=== PATIENT | male | born 1955 | race Caucasian/White ===

== ENCOUNTER 2016-10-11 13:48 | Observation (INO) | payer OTHER ==
[2016-10-11 13:53] VITALS: BP 164/94; PULSE 102; RESP 20; TEMP 98.1; O2SAT 97
[2016-10-11] MEDS ORDERED: SODIUM CHLOR 0.9% 1000 ML INJ 1,000 ML IV SCH ×2 (14:12)
--- NOTE | 2016-10-11 14:19 | PD ---
HPI Chief Complaint: General Weakness Time Seen by Provider: 14:08 Travel History International Travel<30 days: No Contact w/Intl Traveler<30days: No Traveled to known affect area: No History of Present Illness HPI 61-year-old male presents for evaluation of hyperglycemia. The patient reports that early May she quit smoking but since then he's had a craving for sugary foods. Over the past few weeks he has been having polyuria, polydipsia. He went to an urgent care center who checked his blood sugar, blood sugar was 600 and so he was referred here. Denies blurred vision, abdominal pain, nausea or vomiting, recent illness. He has no insurance or outpatient follow-up. No other complaints. [facility] Past Medical History Medical History: Denies Significant Hx Diminished Hearing: No Tetanus Vaccination: > 5 Years Influenza Vaccination: No Past Surgical History Genitourinary Surgery: Yes (PROSTATE IMPLANT) Social History Alcohol Use: Yes (OCASSIONALLY) Tobacco Use: Yes (QUIT IN MAY) Substance Use: No Allergies-Medications (Allergen,Severity, Reaction): Coded Allergies: Aleve (Verified Allergy, Severe, ITCHING, 10/11/16) Naprosyn (Verified Allergy, Severe, ITCHING, 10/11/16) Reported Meds & Prescriptions Reported Meds & Active Scripts Active No Active Prescriptions or Reported Medications Review of Systems Except as stated in HPI: all other systems reviewed are Neg Physical Exam Narrative GENERAL: Well-developed well-nourished male in no acute distress SKIN: Warm and dry. HEAD: Atraumatic. Normocephalic. EYES: Pupils equal and round. No scleral icterus. No injection or drainage. ENT: No nasal bleeding or discharge. Mucous membranes pink and moist. NECK: Trachea midline. No JVD. CARDIOVASCULAR: Regular rate and rhythm. No murmur appreciated. RESPIRATORY: No accessory muscle use. Clear to auscultation. Breath sounds equal bilaterally. GASTROINTESTINAL: Abdomen soft, non-tender, nondistended. Hepatic and splenic margins not palpable. MUSCULOSKELETAL: No obvious deformities. No edema NEUROLOGICAL: Awake and alert. No obvious cranial nerve deficits. Motor grossly within normal limits. Normal speech. PSYCHIATRIC: Appropriate mood and affect; insight and judgment normal. Data Data Last Documented VS Vital Signs Date Time Temp Pulse Resp B/P Pulse Ox O2 Delivery O2 Flow Rate FiO2 10/11/16 14:11 102 17 97 Room Air 10/11/16 13:53 98.1 164/94 Orders Complete Blood Count With Diff (10/11/16 14:12) Comprehensive Metabolic Panel (10/11/16 14:12) Urinalysis - C+S If Indicated (10/11/16 14:12) Iv Access Insert/Monitor (10/11/16 14:12) Ecg Monitoring (10/11/16 14:12) Sodium Chlor 0.9% 1000 Ml Inj (Ns 1000 M (10/11/16 14:12) Sodium Chlor 0.9% 1000 Ml Inj (Ns 1000 M (10/11/16 14:12) Beta Hydroxybutyrate (Acetone) (10/11/16 14:12) Blood Glucose (10/11/16 14:19) Insulin Human Regular Inj (Novolin R Inj (10/11/16 15:30) Place In Observation (10/11/16 ) Code Status (10/11/16 16:15) Vital Signs (Adult) Q4H (10/11/16 16:15) Activity Oob Ad Melissa (10/11/16 16:15) Bedside Glucose EVANS.AC&HS (10/11/16 16:15) Pcat Instructor / Telemetry .CONTINUOUS (10/11/16 16:15) Intake + Output EVANS.QSHIFT (10/11/16 16:15) Notify Dr: Other (10/11/16 16:15) Diet 1800 Ada Cons Carb (10/11/16 Dinner) Sodium Chlor 0.9% 1000 Ml Inj (Ns 1000 M (10/11/16 16:15) Sodium Chloride 0.9% Flush (Ns Flush) (10/11/16 16:15) Sodium Chloride 0.9% Flush (Ns Flush) (10/11/16 21:00) Acetaminophen (Tylenol) (10/11/16 16:15) Ondansetron Inj (Zofran Inj) (10/11/16 16:15) Basic Metabolic Panel (Bmp) (10/12/16 06:00) Complete Blood Count With Diff (10/12/16 06:00) Hepatic Functional Panel (10/12/16 06:00) Dietary (Dietitian) Consult (10/11/16 16:15) Scd Bilateral/Knee High EVANS.BID (10/11/16 16:15) Naloxone Inj (Narcan Inj) (10/11/16 16:15) Docusate Sodium-Senna (Adrianna-Colace) (10/11/16 21:00) Magnesium Hydroxide Liq (Milk Of Magnesi (10/11/16 16:15) Sennosides (Senokot) (10/11/16 16:15) Bisacodyl Supp (Dulcolax Supp) (10/11/16 16:15) Lactulose Liq (Lactulose Liq) (10/11/16 16:15) Consult Software Configuration Analyst (10/11/16 ) Admit Order (Ed Use Only) (10/11/16 16:17) Insulin Detemir Inj (Levemir Inj) (10/11/16 21:00) Insulin Human Reg Supp Scale (Novolin R (10/11/16 21:00) Insulin Human Regular Inj (Novolin R Inj (10/11/16 17:00) Lipid Profile (10/11/16 16:19) Thyroid Stimulating Hormone (10/11/16 16:19) Free Thyroxine (T4) (10/11/16 16:19) Hemoglobin (Hgb) A1c (10/11/16 16:19) Labs Laboratory Tests Test 10/11/16 14:20 White Blood Count 11.4 TH/MM3 Red Blood Count 5.17 MIL/MM3 Hemoglobin 16.5 GM/DL Hematocrit 48.1 % Mean Corpuscular Volume 93.1 FL Mean Corpuscular Hemoglobin 32.0 PG Mean Corpuscular Hemoglobin 34.3 % Concent Red Cell Distribution Width 13.0 % Platelet Count 227 TH/MM3 Mean Platelet Volume 8.7 FL Neutrophils (%) (Auto) 80.4 % Lymphocytes (%) (Auto) 10.1 % Monocytes (%) (Auto) 8.2 % Eosinophils (%) (Auto) 0.5 % Basophils (%) (Auto) 0.8 % Neutrophils # (Auto) 9.2 TH/MM3 Lymphocytes # (Auto) 1.2 TH/MM3 Monocytes # (Auto) 0.9 TH/MM3 Eosinophils # (Auto) 0.1 TH/MM3 Basophils # (Auto) 0.1 TH/MM3 CBC Comment DIFF FINAL Differential Comment Urine Color LIGHT-YELLOW Urine Turbidity CLEAR Urine pH 5.0 Urine Specific Cleves 1.034 Urine Protein NEG mg/dL Urine Glucose (UA) 1000 mg/dL Urine Ketones 10 mg/dL Urine Occult Blood NEG Urine Nitrite NEG Urine Bilirubin NEG Urine Urobilinogen LESS THAN 2.0 MG/DL Urine Leukocyte Esterase NEG Urine RBC 1 /hpf Urine WBC LESS THAN 1 /hpf Microscopic Urinalysis Comment CULT NOT INDICATED Sodium Level 127 MEQ/L Potassium Level 3.9 MEQ/L Chloride Level 88 MEQ/L Carbon Dioxide Level 26.2 MEQ/L Anion Gap 13 MEQ/L Blood Urea Nitrogen 16 MG/DL Creatinine 1.47 MG/DL Estimat Glomerular Filtration 49 ML/MIN Rate Random Glucose 639 MG/DL Calcium Level 9.1 MG/DL Total Bilirubin 0.9 MG/DL Aspartate Amino Transf 19 U/L (AST/SGOT) Alanine Aminotransferase 39 U/L (ALT/SGPT) Alkaline Phosphatase 117 U/L Total Protein 7.0 GM/DL Albumin 3.9 GM/DL B-Hydroxybutyrate 2.60 MMOL/L MDM Medical Decision Making Medical Screen Exam Complete: Yes Emergency Medical Condition: Yes Medical Record Reviewed: Yes Differential Diagnosis Hyperglycemia, type 2 diabetes, dehydration, electrolyte abnormality, DKA Narrative Course The patient was given IV fluids, basic lab work has been ordered. Laboratory is been reviewed. 1000 glucose in the urine. Blood glucose levels in the 600 range consistent with likely new onset type 2 diabetes. He is not in DKA. He is being given an insulin bolus and his blood sugar will be rechecked. He was also given information on patient assistance program. Plan is to admit the patient for observation for new onset diabetes. Discussed with Dr. Smith who is agreeable. Diagnosis Primary Impression: Diabetes Qualified Code: E11.9 - Type 2 diabetes mellitus without complication, without long-term current use of insulin Additional Impression: Hyperglycemia Admitting Information Admitting Physician Requests: Observation Scripts No Active Prescriptions or Reported Meds Keanu Bustos October 11, 2016 14:19
[2016-10-11 14:46] LABS: AUTOMATED NEUTROPHIL # 9.2 TH/MM3 (1.8-7.7); BASOPHIL # 0.1 TH/MM3 (0-0.2); BASOPHIL % 0.8 % (0.0-2.0); EOSINOPHIL # 0.1 TH/MM3 (0-0.4); EOSINOPHIL % 0.5 % (0.0-4.0); HEMATOCRIT 48.1 % (39.0-51.0); LYMPH % 10.1 % (9.0-44.0); LYMPHOCYTE # 1.2 TH/MM3 (1.0-4.8); MEAN CELL VOLUME 93.1 FL (80.0-100.0); MEAN CORPUSCULAR HGB CONC 34.3 % (32.0-36.0); MONO % 8.2 % (0.0-8.0); NEUT % 80.4 % (16.0-70.0); PLATELET COUNT 227 TH/MM3 (150-450); RED BLOOD COUNT 5.17 MIL/MM3 (4.50-5.90); WHITE BLOOD COUNT 11.4 TH/MM3 (4.0-11.0)
[2016-10-11 14:49] LABS: HEMO FLAGS DIFF FINAL
[2016-10-11 14:51] LABS: BLOOD, URINE NEG (NEG); GLUCOSE,URINE 1000 mg/dL (NEG); KETONE, URINE 10 mg/dL (NEG); NITRITE,URINE NEG (NEG); URINE COLOR LIGHT-YELLOW (YELLW/STRAW)
[2016-10-11 15:04] LABS: COMMENT (UR) CULT NOT INDICATED; CULTURE IF INDICATED CULT NOT INDICATED
[2016-10-11 15:05] LABS: ANION GAP 13 MEQ/L (5-15)
[2016-10-11 15:22] LABS: ALKALINE PHOSPHATASE 117 U/L (45-117); ALT (GPT) 39 U/L (12-78); AST (GOT) 19 U/L (15-37); BICARBONATE 26.2 MEQ/L (21.0-32.0); BLOOD UREA NITROGEN 16 MG/DL (7-18); CHLORIDE 88 MEQ/L (98-107); GLOMERULAR FILTRATION RATE 49 ML/MIN (>89); POTASSIUM 3.9 MEQ/L (3.5-5.1); SODIUM (NA) 127 MEQ/L (136-145); TOTAL BILIRUBIN ADULT 0.9 MG/DL (0.2-1.0)
[2016-10-11] MEDS ORDERED: INSULIN HUMAN REGULAR 1,000 UNITS/10 ML VIAL IV PUSH ONE (15:30)
[2016-10-11] MEDS ORDERED: BISACODYL 10 MG SUPP RECTAL PRN (16:15)
[2016-10-11] MEDS ORDERED: ACETAMINOPHEN 325 MG TAB PO PRN (16:15)
[2016-10-11] MEDS ORDERED: SENNOSIDES 8.6 MG TAB PO PRN (16:15)
[2016-10-11] MEDS ORDERED: MAGNESIUM HYDROXIDE SUSP 30 ML CUP PO PRN (16:15)
[2016-10-11] MEDS ORDERED: ONDANSETRON HCL 4 MG/2 ML VIAL IVP PRN (16:15)
[2016-10-11] MEDS ORDERED: NALOXONE HCL 0.4 MG/ML AMP IV PRN (16:15)
[2016-10-11] MEDS ORDERED: SODIUM CHLORIDE 0.9% FLUSH 10 ML FLUSH IV FLUSH PRN (16:15)
[2016-10-11] MEDS ORDERED: LACTULOSE SYRUP 20 GM/30 ML CUP PO PRN (16:15)
--- NOTE | 2016-10-11 16:25 | HHI.HP ---
[facility] [place] [facility] Primary Care Physician Non-Staff Admission Diagnosis New onset diabetes, hyperglycemia Diagnoses: Chief Complaint: Hyperglycemia Travel History International Travel<30 Days: No Contact w/Intl Traveler <30 Da: No Traveled to Known Affected Are: No History of Present Illness This is a pleasant 61 y/o male who came for evaluation of Hyperglycemia, he quit smoking in May Since then he's had a craving for sugary foods. Over the past few weeks he has been having polyuria, polydipsia. He went to an urgent care center who checked his blood sugar, blood sugar was 600 and so he was referred here. Denies blurred vision, abdominal pain, nausea or vomiting, recent illness. has no Primary care Physician. the patient was seen in Emergency room, complaint of blurred vision, was sent due to Hyperglycemia stable, dry mouth. 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 Past Surgical History Prostate implant Reported Medications Reported Meds & Active Scripts Active No Active Prescriptions or Reported Medications Allergies: Coded Allergies: Aleve (Verified Allergy, Severe, ITCHING, 10/11/16) Naprosyn (Verified Allergy, Severe, ITCHING, 10/11/16) Active Ordered Medications Current Medications Medications (Trade) Dose Ordered Sig/Denita Route Start Time Stop Time Status Last Admin (NS 1000 ml Inj) 1,000 ml @ 150 mls/hr Q6H40M IV 10/11/16 16:15 UNV (NS Flush) 2 ml UNSCH PRN IV FLUSH 10/11/16 16:15 UNV (NS Flush) 2 ml BID IV FLUSH 10/11/16 21:00 UNV (Tylenol) 650 mg Q4H PRN PO 10/11/16 16:15 UNV (Zofran Inj) 4 mg Q6H PRN IVP 10/11/16 16:15 UNV (Narcan Inj) 0.4 mg UNSCH PRN IV 10/11/16 16:15 UNV (Adrianna-Colace) 1 tab BID PO 10/11/16 21:00 UNV (Milk Of Magnesia Liq) 30 ml Q12H PRN PO 10/11/16 16:15 UNV (Senokot) 17.2 mg Q12H PRN PO 10/11/16 16:15 UNV (Dulcolax Supp) 10 mg DAILY PRN RECTAL 10/11/16 16:15 UNV (Lactulose Liq) 30 ml DAILY PRN PO 10/11/16 16:15 UNV Family History Asked and denied. Social History Occasional Alcohol abuse Quit smoking in May this year. Physical Exam Vital Signs Vital Signs Date Time Temp Pulse Resp B/P Pulse Ox O2 Delivery O2 Flow Rate FiO2 10/11/16 14:11 102 17 97 Room Air 10/11/16 13:53 98.1 102 20 164/94 97 Room Air Physical Exam GENERAL: Well-developed well-nourished male in no acute distress SKIN: Warm and dry. HEAD: Atraumatic. Normocephalic. EYES: Pupils equal and round. No scleral icterus. No injection or drainage. ENT: No nasal bleeding or discharge. dry mucous membranes. NECK: Trachea midline. No JVD. CARDIOVASCULAR: Regular rate and rhythm. No murmur appreciated. RESPIRATORY: No accessory muscle use. Clear to auscultation. Breath sounds equal bilaterally. GASTROINTESTINAL: Abdomen soft, non-tender, nondistended. Hepatic and splenic margins not palpable. MUSCULOSKELETAL: No obvious deformities. No edema NEUROLOGICAL: Awake and alert. No obvious cranial nerve deficits. Motor grossly within normal limits. Normal speech. PSYCHIATRIC: Appropriate mood and affect; insight and judgment normal. Laboratory Laboratory Tests Test 10/11/16 14:20 White Blood Count 11.4 Red Blood Count 5.17 Hemoglobin 16.5 Hematocrit 48.1 Mean Corpuscular Volume 93.1 Mean Corpuscular Hemoglobin 32.0 Mean Corpuscular Hemoglobin 34.3 Concent Red Cell Distribution Width 13.0 Platelet Count 227 Mean Platelet Volume 8.7 Neutrophils (%) (Auto) 80.4 Lymphocytes (%) (Auto) 10.1 Monocytes (%) (Auto) 8.2 Eosinophils (%) (Auto) 0.5 Basophils (%) (Auto) 0.8 Neutrophils # (Auto) 9.2 Lymphocytes # (Auto) 1.2 Monocytes # (Auto) 0.9 Eosinophils # (Auto) 0.1 Basophils # (Auto) 0.1 CBC Comment DIFF FINAL Differential Comment Urine Color LIGHT-YELLOW Urine Turbidity CLEAR Urine pH 5.0 Urine Specific [place] 1.034 Urine Protein NEG Urine Glucose (UA) 1000 Urine Ketones 10 Urine Occult Blood NEG Urine Nitrite NEG Urine Bilirubin NEG Urine Urobilinogen LESS THAN 2.0 Urine Leukocyte Esterase NEG Urine RBC 1 Urine WBC LESS THAN 1 Microscopic Urinalysis Comment CULT NOT INDICATED Sodium Level 127 Potassium Level 3.9 Chloride Level 88 Carbon Dioxide Level 26.2 Anion Gap 13 Blood Urea Nitrogen 16 Creatinine 1.47 Estimat Glomerular Filtration 49 Rate Random Glucose 639 Calcium Level 9.1 Total Bilirubin 0.9 Aspartate Amino Transf 19 (AST/SGOT) Alanine Aminotransferase 39 (ALT/SGPT) Alkaline Phosphatase 117 Total Protein 7.0 Albumin 3.9 B-Hydroxybutyrate 2.60 Result Diagram: 10/11/16 1420 10/11/16 1420 Assessment and Plan Assessment and Plan 1. Newly diagnosed DM II, complete laboratory to be complete, placed on observation, preserved Anion Gap continue IV fluids and Insulin, Diabetic Education. DVT prophylaxis with SCDs. Code Status Full code Discussed Condition With Patient and ER Specialist. Kingsley Dean MD October 11, 2016 16:25
[2016-10-11] MEDS: SODIUM CHLOR 0.9% 1000 ML INJ 1,000 ML IV SCH ×2 (16:42→21:42)
[2016-10-11] MEDS: INSULIN HUMAN REGULAR 1,000 UNITS/10 ML VIAL SQ SCH (16:45)
[2016-10-11 16:47] VITALS: BP 150/87; PULSE 81; RESP 17; TEMP 97.8; O2SAT 99
[2016-10-11] MEDS ORDERED: SODIUM CHLOR 0.9% 1000 ML INJ 1,000 ML IV ONE (17:15)
[2016-10-11 17:59] LABS: FREE T4 1.36 NG/DL (0.76-1.46); HDL CHOLESTEROL 36.2 MG/DL (40.0-60.0)
[2016-10-11 18:04] VITALS: BP 153/93; PULSE 73; RESP 16; TEMP 98; O2SAT 96
[2016-10-11 20:06] VITALS: BP 156/88; PULSE 75; RESP 20; TEMP 98.1; O2SAT 97
[2016-10-11] MEDS: SODIUM CHLORIDE 0.9% FLUSH 10 ML FLUSH IV FLUSH SCH (21:00)
[2016-10-11] MEDS: DOCUSATE SODIUM 50 MG/SENNA 8.6 MG TAB PO SCH (21:35)
[2016-10-11] MEDS: INSULIN DETEMIR 100 UNITS/ML VIAL SQ SCH (21:40)
[2016-10-11] MEDS: INSULIN NovoLIN REGULAR SUPPLEMENTAL SCALE SQ SCH (21:41)
[2016-10-12] VITALS (9 sets, daily range): BP systolic 140–172; BP diastolic 69–100; PULSE 64–80; RESP 16–20; TEMP 96.8–98.4; O2SAT 95–98
[2016-10-12] MEDS: SODIUM CHLOR 0.9% 1000 ML INJ 1,000 ML IV SCH ×2 (06:01→17:08)
[2016-10-12] MEDS: INSULIN NovoLIN REGULAR SUPPLEMENTAL SCALE SQ SCH ×4 (07:28→21:13)
[2016-10-12 07:50] LABS: AUTOMATED NEUTROPHIL # 5.5 TH/MM3 (1.8-7.7); BASOPHIL % 0.2 % (0.0-2.0); EOSINOPHIL # 0.1 TH/MM3 (0-0.4); EOSINOPHIL % 1.7 % (0.0-4.0); HEMO FLAGS DIFF FINAL; LYMPH % 16.3 % (9.0-44.0); LYMPHOCYTE # 1.2 TH/MM3 (1.0-4.8); MEAN CELL VOLUME 92.7 FL (80.0-100.0); MEAN CORPUSCULAR HEMOGLOBIN 31.7 PG (27.0-34.0); MEAN CORPUSCULAR HGB CONC 34.2 % (32.0-36.0); MONO % 8.1 % (0.0-8.0); NEUT % 73.7 % (16.0-70.0); PLATELET COUNT 179 TH/MM3 (150-450); RED BLOOD COUNT 4.53 MIL/MM3 (4.50-5.90); RED CELL DISTRIBUTION WIDTH 12.9 % (11.6-17.2); WHITE BLOOD COUNT 7.5 TH/MM3 (4.0-11.0)
[2016-10-12 07:58] LABS: BICARBONATE 26.5 MEQ/L (21.0-32.0); INDIRECT BILIRUBIN 0.4 MG/DL (0.0-0.8); POTASSIUM 3.2 MEQ/L (3.5-5.1); TOTAL BILIRUBIN ADULT 0.6 MG/DL (0.2-1.0)
[2016-10-12] MEDS ORDERED: POTASSIUM CHLORIDE 20 MEQ CONTROLLED RELEASE TAB PO ONE (08:15)
[2016-10-12] MEDS: INSULIN DETEMIR 100 UNITS/ML VIAL SQ SCH (09:00)
[2016-10-12] MEDS: INSULIN HUMAN REGULAR 1,000 UNITS/10 ML VIAL SQ SCH ×2 (09:00→11:59)
[2016-10-12] MEDS: SODIUM CHLORIDE 0.9% FLUSH 10 ML FLUSH IV FLUSH SCH ×2 (09:54→20:30)
[2016-10-12] MEDS: DOCUSATE SODIUM 50 MG/SENNA 8.6 MG TAB PO SCH ×2 (09:54→20:29)
--- NOTE | 2016-10-12 10:45 | HHI.PR ---
Subjective Remarks Follow-up for new onset diabetes. The patient states that for the past month he 's been having polyuria and polydipsia. He's been getting up every hour at night to urinate. He feels like that is getting better here overnight. Otherwise he has no acute complaints. He's been trying to get in to see a self- pay PCP, has an appointment 10/17. Objective Vitals Vital Signs Date Time Temp Pulse Resp B/P Pulse Ox O2 Delivery O2 Flow Rate FiO2 10/12/16 08:51 97.9 72 20 163/69 96 10/12/16 05:03 65 10/12/16 04:03 97.8 64 16 140/74 97 10/12/16 00:08 98.3 72 20 172/100 98 10/11/16 20:06 98.1 75 20 156/88 97 10/11/16 18:04 98.0 73 16 153/93 96 10/11/16 16:47 97.8 81 17 150/87 99 Room Air 10/11/16 14:11 102 17 97 Room Air 10/11/16 13:53 98.1 102 20 164/94 97 Room Air I/O 10/11/16 10/11/16 10/11/16 10/12/16 10/12/16 10/12/16 07:00 15:00 23:00 07:00 15:00 23:00 Output Total 700 ml 800 ml 800 ml Balance -700 ml -800 ml -800 ml Output Urine Total 700 ml 800 ml 800 ml # Voids 1 1 # Bowel Movements 0 0 Result Diagram: 10/12/16 0654 10/12/16 0654 Objective Remarks GENERAL: Well-developed well-nourished. In no acute distress. SKIN: Warm and dry. No lesions noted. HEENT: Normocephalic. Pupils equal and round. Mucous membranes pink and moist. CARDIOVASCULAR: Regular rate and rhythm. No murmur appreciated. RESPIRATORY: No accessory muscle use. Clear to auscultation. Breath sounds equal bilaterally. GASTROINTESTINAL: Abdomen soft, non-tender, nondistended. Bowel sounds x4. MUSCULOSKELETAL: No obvious deformities. No clubbing or cyanosis. No edema. NEUROLOGICAL: Awake and alert. No focal neurological deficits. Moves upper and lower extremities spontaneously. Normal speech. PSYCHIATRIC: Appropriate mood and affect; insight and judgment normal. A/P Assessment and Plan 61-year-old male with a past medical history of prostate cancer status post treatment who presented with new onset diabetes New onset diabetes mellitus type 2: Presented with hyperglycemia and blood glucose 639. Started on preprandial and basal insulin with improvement in blood glucoses overnight. Due to lack of insurance, we'll convert insulin regimen to NovoLog 70/30. Hemoglobin A1c is pending. Continue IVF. Consulted community health educator, dietitian, and case management. Hypokalemia: Potassium 3.2. Replace orally. Check magnesium. Hyperlipidemia: Lipid profile reviewed with high triglycerides, unquantifiable LDL, low HDL. Start statin with diabetes mellitus as above. DVT prophylaxis: SCDs Discharge Planning Pending clinical course. Await further improvement and control of blood glucoses. Kam Mario October 12, 2016 10:45
[2016-10-12 16:32] LABS: HEMOGLOBIN A1a 2.2 %; HEMOGLOBIN A1b 1.7 %; HEMOGLOBIN Ao 64.8 %; HEMOGLOBIN F 4.1 %; HEMOGLOBIN LA1C 5.8 %; HEMOGLOBIN P3 9.5 %
[2016-10-12] MEDS ORDERED: INSULIN ASPAR PROT 70/30 1,000 UNITS/10 ML VIAL SQ SCH (17:00)
[2016-10-12] MEDS ORDERED: ATORVASTATIN 20 MG TAB PO SCH (21:00)
[2016-10-13 05:10] VITALS: BP 162/87; PULSE 64; RESP 18; TEMP 98.4; O2SAT 95
[2016-10-13] MEDS: INSULIN NovoLIN REGULAR SUPPLEMENTAL SCALE SQ SCH ×2 (06:25→13:53)
[2016-10-13] MEDS: SODIUM CHLOR 0.9% 1000 ML INJ 1,000 ML IV SCH (06:27)
[2016-10-13] MEDS ORDERED: TEMAZEPAM 7.5 MG CAP PO PRN (07:15)
[2016-10-13] MEDS ORDERED: INSULIN ASPAR PROT 70/30 1,000 UNITS/10 ML VIAL SQ SCH ×2 (08:00→17:00)
[2016-10-13 08:18] VITALS: BP 171/97; PULSE 66; RESP 20; TEMP 98.6; O2SAT 96
[2016-10-13] MEDS ORDERED: LISINOPRIL 10 MG TAB PO SCH (09:00)
[2016-10-13 09:02] LABS: BICARBONATE 22.6 MEQ/L (21.0-32.0); POTASSIUM 3.2 MEQ/L (3.5-5.1)
[2016-10-13] MEDS: DOCUSATE SODIUM 50 MG/SENNA 8.6 MG TAB PO SCH (09:05)
[2016-10-13] MEDS: SODIUM CHLORIDE 0.9% FLUSH 10 ML FLUSH IV FLUSH SCH (09:05)
[2016-10-13] MEDS ORDERED: LOVA20TA PO (09:06)
--- NOTE | 2016-10-13 09:06 | HHI.PR ---
Subjective Remarks Follow-up for new onset diabetes mellitus. Polyuria and polydipsia have continued to improve. Patient denies any nausea or abdominal cramping. The patient feels like he learned a lot with diabetes education. Had long discussion regarding continuing care with diabetes, all questions answered. Objective Vitals Vital Signs Date Time Temp Pulse Resp B/P Pulse Ox O2 Delivery O2 Flow Rate FiO2 10/13/16 08:18 98.6 66 20 171/97 96 10/13/16 05:10 98.4 64 18 162/87 95 10/12/16 23:24 98.4 71 18 141/83 97 10/12/16 20:00 68 10/12/16 19:35 98.3 73 18 144/82 98 10/12/16 17:34 98.2 70 18 167/90 95 10/12/16 12:19 96.8 80 18 163/98 98 I/O 10/12/16 10/12/16 10/12/16 10/13/16 10/13/16 10/13/16 07:00 15:00 23:00 07:00 15:00 23:00 Output Total 800 ml 700 ml Balance -800 ml -700 ml Output Urine Total 800 ml 700 ml Result Diagram: 10/12/16 0654 10/12/16 0654 Objective Remarks GENERAL: Well-developed well-nourished. In no acute distress. SKIN: Warm and dry. No lesions noted. HEENT: Normocephalic. Pupils equal and round. Mucous membranes pink and moist. CARDIOVASCULAR: Regular rate and rhythm. No murmur appreciated. RESPIRATORY: No accessory muscle use. Clear to auscultation. Breath sounds equal bilaterally. GASTROINTESTINAL: Abdomen soft, non-tender, nondistended. Bowel sounds x4. MUSCULOSKELETAL: No obvious deformities. No clubbing or cyanosis. No edema. NEUROLOGICAL: Awake and alert. No focal neurological deficits. Moves upper and lower extremities spontaneously. Normal speech. PSYCHIATRIC: Appropriate mood and affect; insight and judgment normal. A/P Problem List: (1) Diabetes ICD Code: E11.9 Status: Acute Assessment and Plan 61-year-old male with a past medical history of prostate cancer status post treatment who presented with new onset diabetes New onset diabetes mellitus type 2: Presented with hyperglycemia and blood glucose 639. Started on insulin regimen with improvement in blood glucoses. Blood glucoses are reasonably controlled, continue NovoLog 70/30. Hemoglobin A1c 13.8. DC IVF. Consulted cosmetology educator, dietitian, and case management. Electrolyte derangement: Potassium remains 3.2 after replacement, additional oral replacement. Magnesium within normal limits. Phosphorus low, replace orally. Hyperlipidemia: Lipid profile reviewed with high triglycerides, unquantifiable LDL, low HDL. Started statin. Hypertension: BP uncontrolled. Start lisinopril. DVT prophylaxis: SCDs Discharge Planning Anticipate discharge later today if blood pressure and blood glucoses are stable. Problem Qualifiers (1) Diabetes: Qualified Code: E11.65 - Type 2 diabetes mellitus with hyperglycemia, without long-term current use of insulin Kam Mario October 13, 2016 09:06
[2016-10-13] MEDS ORDERED: BLOO-54 (09:09)
[2016-10-13] MEDS ORDERED: [UNRECOGNIZED DRUG - CODE] (09:09)
[2016-10-13] MEDS ORDERED: BLOOD GLUCOSE T1 TES (09:09)
[2016-10-13] MEDS ORDERED: POTASSIUM PHOSPHATE MONOBASIC 500 MG TAB PO ONE (09:15)
[2016-10-13] MEDS ORDERED: POTASSIUM CHLORIDE 20 MEQ CONTROLLED RELEASE TAB PO ONE (09:15)
[2016-10-13 13:18] VITALS: BP 140/83; RESP 18; TEMP 96.8; O2SAT 96
[2016-10-13] MEDS ORDERED: NOVOLOGMXP SQ (16:15)
[2016-10-13] MEDS ORDERED: LISI10TA3 PO (16:15)
--- NOTE | 2016-10-13 16:20 | HHI.DS ---
Discharge Summary Admission Date October 11, 2016 at 16:20 Discharge Date: October 13, 2016 Admitting Diagnosis New onset diabetes, hyperglycemia (1) Diabetes ICD Code: E11.9 Diagnosis: Principal (2) Hyperglycemia ICD Code: R73.9 Diagnosis: Principal (3) HLD (hyperlipidemia) ICD Code: E78.5 Diagnosis: Secondary (4) HTN (hypertension) ICD Code: I10 Diagnosis: Secondary Procedures None Brief History - From Admission This is a pleasant 61 y/o male who came for evaluation of Hyperglycemia, he quit smoking in May Since then he's had a craving for sugary foods. Over the past few weeks he has been having polyuria, polydipsia. He went to an urgent care center who checked his blood sugar, blood sugar was 600 and so he was referred here. Denies blurred vision, abdominal pain, nausea or vomiting, recent illness. has no Primary care Physician. the patient was seen in Emergency room, complaint of blurred vision, was sent due to Hyperglycemia stable, dry mouth. CBC/BMP: 10/12/16 0654 10/13/16 0759 Significant Findings Laboratory Tests Test 10/11/16 10/12/16 10/13/16 14:20 06:54 07:59 White Blood Count 11.4 TH/MM3 (4.0-11.0) Neutrophils (%) (Auto) 80.4 % 73.7 % (16.0-70.0) (16.0-70.0) Monocytes (%) (Auto) 8.2 % (0.0-8.0) 8.1 % (0.0-8.0) Neutrophils # (Auto) 9.2 TH/MM3 (1.8-7.7) Urine Glucose (UA) 1000 mg/dL (NEG) Urine Ketones 10 mg/dL (NEG) Sodium Level 127 MEQ/L (136-145) Chloride Level 88 MEQ/L (98-107) Creatinine 1.47 MG/DL (0.60-1.30) Estimat Glomerular Filtration 49 ML/MIN (>89) Rate Random Glucose 639 MG/DL 200 MG/DL 219 MG/DL (74-106) (74-106) (74-106) B-Hydroxybutyrate 2.60 MMOL/L (0.00-0.39) Hemoglobin A1c 13.8 % (4.3-6.0) Triglycerides Level 710 MG/DL (42-150) Cholesterol Level 244 MG/DL (120-200) HDL Cholesterol 36.2 MG/DL (40.0-60.0) Potassium Level 3.2 MEQ/L 3.2 MEQ/L (3.5-5.1) (3.5-5.1) Calcium Level 7.7 MG/DL 8.0 MG/DL (8.5-10.1) (8.5-10.1) Total Protein 5.4 GM/DL (6.4-8.2) Albumin 2.9 GM/DL (3.4-5.0) Blood Urea Nitrogen 6 MG/DL (7-18) Phosphorus Level 2.3 MG/DL (2.5-4.9) PE at Discharge GENERAL: Well-developed well-nourished. In no acute distress. SKIN: Warm and dry. No lesions noted. HEENT: Normocephalic. Pupils equal and round. Mucous membranes pink and moist. CARDIOVASCULAR: Regular rate and rhythm. No murmur appreciated. RESPIRATORY: No accessory muscle use. Clear to auscultation. Breath sounds equal bilaterally. GASTROINTESTINAL: Abdomen soft, non-tender, nondistended. Bowel sounds x4. MUSCULOSKELETAL: No obvious deformities. No clubbing or cyanosis. No edema. NEUROLOGICAL: Awake and alert. No focal neurological deficits. Moves upper and lower extremities spontaneously. Normal speech. PSYCHIATRIC: Appropriate mood and affect; insight and judgment normal. Pt update on day of discharge Blood glucose is reasonably controlled. NovoLog 70/30 dose adjusted to 40 units twice daily. Blood pressures recently controlled. Hospital Course 61-year-old male with a past medical history of prostate cancer status post treatment who presented with new onset diabetes New onset diabetes mellitus type 2: Presented with hyperglycemia and blood glucose 639. Started on insulin regimen with improvement in blood glucoses. Continue NovoLog 70/30. Hemoglobin A1c 13.8. Received IVF and electrolytes replaced. Evaluated by extension educator, dietitian, and case management. Hyperlipidemia: Lipid profile reviewed with high triglycerides, unquantifiable LDL, low HDL. Started statin. Hypertension: Started lisinopril. Better controlled. Pt Condition on Discharge: Stable Discharge Disposition: Discharge Home Discharge Time: > 30 minutes Discharge Instructions DIET: Follow Instructions for: Diabetic Diet Activities you can perform: Regular-No Restrictions Follow up Referrals: PCP Follow-up - 1 Week New Medications: Blood Glucose Test Strips (Blood Glucose Test Strips) Strips Strip 1 EA .ROUTE DIRECTED Blood Sugar Management #1 Ref 0 BOX Blood-Glucose Meter (Blood Glucose Monitor) 1 Each Kit KIT #1 Insulin Administration Supplie (Easy Touch Insulin Syring) 1 Mis Mis BOX #1 Lovastatin (Lovastatin) 20 Mg Tab 20 MG PO HS Cholesterol Management #30 Ref 0 TAB Insulin Aspart Protam-Asp 70-30 Inj (Novolog Mix 70-30 Inj) 1,000 Unit/10 Ml Vial 40 UNITS SQ BID@08,17 Blood Sugar Management Days 30 INJECTION Lisinopril (Lisinopril) 10 Mg Tab 10 MG PO DAILY Blood Pressure Management #30 TAB Kam Mario October 13, 2016 16:20
[2016-10-13 16:36] VITALS: BP 160/90; PULSE 68; RESP 18; TEMP 97.3; O2SAT 96
== END 2016-10-13 17:52 | disposition home or self-care (01) ==
LOC: NEPC 13:48 → NEDA 16:20 → NEPGCP 17:38
PROVIDERS: ADMIT Internal Medicine; ATTEND Internal Medicine
DX: E11.65 Type 2 diabetes mellitus with hyperglycemia (principal); F17.210 Nicotine dependence, cigarettes, uncomplicated; Z85.46 Personal history of malignant neoplasm of prostate; E78.5 Hyperlipidemia, unspecified; I10 Essential (primary) hypertension; R68.2 Dry mouth, unspecified; H53.8 Other visual disturbances
CPT/HCPCS: 80048; 80053; 80061; 80076; 81001; 82010; 82948; 83036; 83735; 84100; 84439; 84443; 85025; 96361; 96374; 99285; G0378; J1815; J7030